=== PATIENT | male | born 1965 | race African-American/Black ===

== ENCOUNTER 2019-04-01 21:17 | Emergency (ER) | payer SELFPAY ==
--- NOTE | 2019-04-01 21:20 | PDOC ---
Rapid Medical Evaluation Time Seen by Provider: 04/01/19 21:18 Medical Evaluation: Allergies Allergy/AdvReac Type Severity Reaction Status Date / Time No Known Allergies Allergy Verified 10/21/15 16:20 04/01/19 21:19 I have performed a brief in-person evaluation of this patient. The patient presents with a chief complaint of: Right groin pain x2 days. Pertinent physical exam findings: deferred I have ordered the following: nothing The patient will proceed to the ED for further evaluation. Discharge Disposition - Diagnosis Right groin pain - Referrals - Patient Instructions - Post Discharge Activity
[2019-04-01 21:23] VITALS: BP 127/80; PULSE 66; TEMP 98.2; BMI 31.1
[2019-04-01] MEDS ORDERED: IBUPROFEN 600 MG TABLET (FP) PO ONE ×2 (22:07→22:14)
--- NOTE | 2019-04-01 22:13 | PDOC ---
History of Present Illness - General Chief Complaint: Pain Stated Complaint: GROIN PAIN Time Seen by Provider: 04/01/19 21:18 History Source: Patient - History of Present Illness Initial Comments: 04/01/19 22:08 Chief complaint: Right groin pain Patient is a 54-year-old male without any significant problems who went jet skiing 8 days ago, states he was jolted around, did not fall and developed right groin pain which seemed to resolve in the next 2-3 days. He went back to work, started walking and pushing things and developed pain again. Patient denies any fever, nausea, vomiting, urinary problems, testicular pain any swelling, hernias. Patient has not taken any pain medicine. GENERAL/CONSTITUTIONAL: No fever, weakness. dizziness HEAD, EYES, EARS, NOSE AND THROAT: No change in vision. No ear pain or discharge. No sore throat. CARDIOVASCULAR: No chest pain RESPIRATORY: No shortness of breath or cough GASTROINTESTINAL: No pain, nausea, vomiting, diarrhea or constipation GENITOURINARY: No dysuria MUSCULOSKELETAL: No neck or back pain, +groin pain SKIN: No rash NEUROLOGIC: No headache, vertigo, loss of consciousness, or loss of sensation. GENERAL: The patient is awake, alert, and fully oriented, in no acute distress. HEAD: Normal with no signs of trauma. EYES: Pupils equal, round and reactive to light, sclera anicteric, conjunctiva clear. ENT: pharynx: no erythema, no exudate, uvula midline NECK: supple CHEST: clear, nontender, rr ABD: soft, nontender. no hernia, no erythema. Genitals: Not circumcised, no swelling, no erythema, no discharge, no testicular swelling, erythema or tenderness BACK: no tenderness or signs of injury EXTREMITIES: Normal range of motion, no edema. + tenderness, focally in anterior hip/pelvis consistent with muscle tenderness NEUROLOGICAL: Normal speech, normal gait. SKIN: Warm, Dry Past History - Past Medical History Allergies/Adverse Reactions: Allergies Allergy/AdvReac Type Severity Reaction Status Date / Time No Known Allergies Allergy Verified 04/01/19 21:19 Home Medications: Ambulatory Orders Ciprofloxacin [Cipro (Restricted To Id)] 250 mg PO BID #6 tablet 10/21/15 Phenazopyridine HCl [Pyridium] 200 mg PO TID PRN #6 tablet 03/26/16 Tamsulosin HCl [Flomax] 0.4 mg PO DAILY #30 capsule 10/21/15 COPD: No - Suicide/Smoking/Psychosocial Hx Smoking History: Never smoked Have you smoked in the past 12 months: No Number of Cigarettes Smoked Daily: 12 If you are a former smoker, when did you quit?: 3 DAYS AGO Hx Alcohol Use: Yes Drug/Substance Use Hx: No Substance Use Type: None *Physical Exam - Vital Signs Last Vital Signs Temp Pulse Resp BP Pulse Ox 98.2 F 66 18 127/80 98 04/01/19 21:19 04/01/19 21:19 04/01/19 21:19 04/01/19 21:19 04/01/19 21:19 Medical Decision Making - Medical Decision Making 04/01/19 22:20 Healthy 54-year-old male who had injury, pulled muscle on [employer] a week ago, was getting better, he went back to work, it got worse when he was walking around and pushing things. Clinical exam shows no other concerning signs and his exam is consistent with a muscle strain. Patient has not taken any medications. Patient will take Motrin, instructed in taking anti-inflammatories , apply warm compresses. Patient given work note. Patient will return to work on Friday, and follow-up with his doctor and was given strict return instructions. Discussed issues, findings, results, applicable medications and treatments and follow-up. All these were understood and all questions were answered *DC/Admit/Observation/Transfer Diagnosis at time of Disposition: Strain of muscle of right groin region - Discharge Dispostion Disposition: HOME Condition at time of disposition: Stable Decision to Admit order: No - Referrals - Patient Instructions Additional Instructions: You can apply warm compresses for 20-30 3 times daily Motrin 600 mg every 6 hours for pain. follow up with your doctor next week - Post Discharge Activity Forms/Work/School Notes: Back to Work
== END 2019-04-01 22:18 | disposition home or self-care (01) ==
LOC: JERFT 21:17
DX: S39.011A Strain of muscle, fascia and tendon of abdomen, initial encounter (principal); X58.XXXA Exposure to other specified factors, initial encounter; Y93.89 Activity, other specified; Y92.89 Other specified places as the place of occurrence of the external cause
CPT/HCPCS: 99281-25

== ENCOUNTER 2024-08-05 08:53 | Emergency (ER) | payer OTHER ==
[2024-08-05 09:01] VITALS: RESP 18; BMI 32.3
[2024-08-05] MEDS ORDERED: DOXYCYCLINE HYCLATE 100 MG CAPSULE PO ONE (10:40)
[2024-08-05] MEDS ORDERED: cefTRIAXone SODIUM 1 GM VIAL ONE (10:40)
[2024-08-05] MEDS: CEFTRIAXONE 500 MG in DEXTROSE 5%-WATER - 50 ML IM ONE (10:51)
[2024-08-05] MEDS: DOXYCYCLINE HYCLATE 100 MG CAPSULE PO ONE ×2 (10:51→11:10)
[2024-08-05 11:07] LABS: EPI CELLS >36 /uL (0-25.1); HYALINE CASTS 2 /uL (0-3.1); URINE APPEARANCE CLEAR; URINE BACTERIA 62 /uL (0-1359); URINE BILIRUBIN NEGATIVE (NEGATIVE); URINE COLOR YELLOW; URINE GLUCOSE (UA) NEGATIVE (NEGATIVE); URINE KETONE NEGATIVE (NEGATIVE); URINE LEUK ESTERASE 2+ (NEGATIVE); URINE NITRITE NEGATIVE (NEGATIVE); URINE PROTEIN NEGATIVE (NEGATIVE); URINE RBC 464 /uL (0-23.9); URINE WBC 188 /uL (0-25.8)
[2024-08-05 11:45] VITALS: BP 130/75; PULSE 82; TEMP 97.5
[2024-08-05 12:53] LABS: HIV INTERPRETATION NEGATIVE (NEGATIVE)
== END 2024-08-05 12:02 | disposition home or self-care (01) ==
LOC: JER 08:53
DX: A53.9 Syphilis, unspecified (principal); R30.0 Dysuria; R31.9 Hematuria, unspecified; R05.9 Cough, unspecified
CPT/HCPCS: 36415; 81003; 86593; 86780; 86803; 87086; 87389; 87491; 87591; 87661; 99284-25

== ENCOUNTER 2024-08-07 16:39 | Emergency (ER) | payer OTHER ==
[2024-08-07 16:53] VITALS: BP 129/89; PULSE 80; RESP 18; TEMP 97.7; BMI 31.4
[2024-08-07] MEDS ORDERED: PENICILLIN G BENZATHINE 1,200,000 UNIT/2 ML PFS IM ONE (17:42)
[2024-08-07] MEDS: PENICILLIN G BENZATHINE 2,400,000 UNIT/4 ML PFS IM ONE (17:50)
== END 2024-08-07 18:17 | disposition home or self-care (01) ==
LOC: JER 16:39 → JERFT 16:39
DX: A53.9 Syphilis, unspecified (principal)
CPT/HCPCS: 99284-25